=== PATIENT | female | born 1950 | race Two or more races ===

== ENCOUNTER → 2019-01-25 06:42 | Outpatient (CLI) | payer OTHER | END | disposition home or self-care (01) | LOC: LAB 06:42 | DX: N20.0 Calculus of kidney (principal); B96.1 Klebsiella pneumoniae [K. pneumoniae] as the cause of diseases classified elsewhere; N30.00 Acute cystitis without hematuria ==

== ENCOUNTER 2019-01-25 07:34 | Outpatient (CLI) | payer OTHER | END 2019-01-25 07:36 | disposition home or self-care (01) | LOC: RAD 07:34 | DX: N20.0 Calculus of kidney (principal) ==

== ENCOUNTER → 2019-03-22 09:45 | Outpatient (CLI) | payer OTHER | END | disposition home or self-care (01) | LOC: LAB 09:45 | DX: N20.0 Calculus of kidney (principal) ==

== ENCOUNTER 2019-03-24 10:26 | Outpatient (CLI) | payer OTHER | END 2019-03-24 15:06 | disposition home or self-care (01) | LOC: LAB 10:26 | DX: N20.0 Calculus of kidney (principal); N30.00 Acute cystitis without hematuria ==

== ENCOUNTER → 2019-10-10 10:03 | Outpatient (CLI) | payer OTHER | END | disposition home or self-care (01) | LOC: LAB 10:03 → RAD 10:03 | PROVIDERS: ATTEND Urology | DX: N30.00 Acute cystitis without hematuria (principal); N20.0 Calculus of kidney; M17.2 Bilateral post-traumatic osteoarthritis of knee ==

== ENCOUNTER 2019-10-15 10:18 | Outpatient (CLI) | payer OTHER | END 2019-10-15 10:32 | disposition home or self-care (01) | LOC: TOM 10:18 | PROVIDERS: ATTEND Urology | DX: N20.0 Calculus of kidney (principal) ==

== ENCOUNTER → 2022-06-11 09:15 | Outpatient (CLI) | payer OTHER | END | disposition home or self-care (01) | LOC: LAB 09:15 | PROVIDERS: ATTEND Urology | DX: N20.0 Calculus of kidney (principal); N30.10 Interstitial cystitis (chronic) without hematuria ==

== ENCOUNTER 2023-03-24 11:51 | Outpatient (CLI) | payer OTHER | END 2023-03-24 15:17 | disposition home or self-care (01) | LOC: MRI 11:51 | PROVIDERS: ATTEND Orthopaedic Surgery | DX: S83.201A Bucket-handle tear of unspecified meniscus, current injury, left knee, initial encounter (principal); M25.562 Pain in left knee; M25.561 Pain in right knee | CPT/HCPCS: 73721 ==

== ENCOUNTER 2023-08-22 14:31 | Emergency (ER) | payer OTHER ==
[~2023-08-22] VITALS: Ht 157.5 cm; Wt 99.8 kg
[2023-08-22] MEDS ORDERED: COZAAR50 MG PO (14:46)
[2023-08-22] MEDS ORDERED: PROTONIX20 MG PO (14:46)
[2023-08-22] MEDS ORDERED: SYMBICORT 80/10.2 GM IH (14:46)
== END 2023-08-22 17:51 | disposition home or self-care (01) ==
LOC: ER 14:32
DX: M12.511 Traumatic arthropathy, right shoulder (principal); W18.39XA Other fall on same level, initial encounter; Y93.89 Activity, other specified; Y92.018 Other place in single-family (private) house as the place of occurrence of the external cause; Z88.8 Allergy status to other drugs, medicaments and biological substances; E11.9 Type 2 diabetes mellitus without complications; I10 Essential (primary) hypertension